=== PATIENT | male | born 1965 | race Caucasian/White ===

== ENCOUNTER 2019-02-04 22:04 | Emergency (ER) | payer BC, OTHER ==
[~2019-02-04 22:04] MED LIST: BENA40TA53 PO; IBUP400T13 PO; LORA10CA3 PO; PRAV40TA78 PO
[2019-02-04] MEDS ORDERED: ASPIRIN 81 MG CHEW CHEW ONE (22:15)
[2019-02-04] MEDS ORDERED: NS(*) 0.9% 1000 ML BAG 1,000 ML IV ONE (22:15)
--- NOTE | 2019-02-04 22:18 | ER Report ---
History and Physical Time Seen By MD: 22:18 Hx. of Stated Complaint: CHEST PAIN STARTING 15 MINUTES AGO, FEELS LIKE TORN SEXTON HPI/ROS CHIEF COMPLAINT: Chest pain HISTORY OF PRESENT ILLNESS: 53-year-old male with a history of hyperlipidemia and hypertension presents complaining of left-sided chest pain, achy in nature. He's been unable to sleep, which per Josefina presented to the ER. He recalls no specific injury. He thinks it feels like a pectoralis muscle tear. He points to the more lateral aspect of his chest wall. He states earlier in the day. He was helping someone move, but he does not think he injured himself. Patient notes no diaphoresis, shortness of breath or nausea. She notes no exertional component. He notes no change with respiration or palpation. REVIEW OF SYSTEMS: Respiratory: No cough, no dyspnea. Cardiovascular: As above Gastrointestinal: No vomiting, no abdominal pain. Musculoskeletal: No back pain. Allergies: Coded Allergies: No Known Drug Allergies (Unverified , 05/17/14) Home Meds Reported Medications Loratadine (CLARITIN) 10 Mg Capsule, 10 MG PO, CAPSULE 07/15/17 Pravastatin Sodium (PRAVASTATIN SODIUM) 40 Mg Tablet, 40 MG PO QDAY 05/17/14 Benazepril Hcl (BENAZEPRIL HCL) 40 Mg Tablet, 40 MG PO QDAY, TAB TAKE 1 TABLET BY MOUTH EVERY DAY 05/17/14 Ibuprofen (IBUPROFEN) 400 Mg Tablet, 1 TAB PO Q6H PRN for PAIN 05/17/14 Past Medical/Surgical History Hypertension, hyperlipidemia Reviewed Nurses Notes: Yes Old Medical Records Reviewed: Yes Smoking Status: Never Smoker Constitutional Vital Sign - Last 24 Hours 02/04/19 02/05/19 22:12 00:00 Temp 99.0 Pulse 73 72 Resp 16 16 B/P (MAP) 167/112 154/98 (116) Pulse Ox 94 95 O2 Delivery Room Air Room Air Physical Exam Vital signs stable, afebrile, pulse ox normal General Appearance: The patient is alert, has no immediate need for airway protection and no current signs of toxicity. No acute distress HEENT: Pupils equal and round no injection. TMs normal, oropharynx without redness or exudate, mucous. Membranes are moist Respiratory: Chest is non tender, lungs are clear to auscultation. No chest wall tenderness Cardiac: regular rate and rhythm, no murmur Gastrointestinal: Abdomen is soft and non tender, no masses, bowel sounds normal. Musculoskeletal: Neck: Neck is supple and non tender. Extremities have full range of motion and are non tender., No edema, no calf tenderness Skin: No rashes or lesions. DIFFERENTIAL DIAGNOSIS: After history and physical exam differential diagnosis was considered for chest pain including but not limited to myocardial ischemia, pericarditis pulmonary embolus, chest wall pain, pleural inflammation and pulmonary infectious causes. Medical Decision Making Data Points Result Diagram: 02/04/193 02/04/193 Laboratory Hematology Test 02/04/19 22:23 Red Blood Count 4.37 M/uL (4.00-5.60) Mean Corpuscular Volume 95.6 fL (80.0-96.0) Mean Corpuscular Hemoglobin 32.2 pg (26.0-33.0) Mean Corpuscular Hemoglobin Concent 33.7 g/dL (32.0-36.0) Red Cell Distribution Width 14.4 % (11.5-14.5) Mean Platelet Volume 7.4 fL (7.2-11.1) Neutrophils (%) (Auto) 49.7 % (39.4-72.5) Lymphocytes (%) (Auto) 35.2 % (17.6-49.6) Monocytes (%) (Auto) 11.9 % (4.1-12.4) Eosinophils (%) (Auto) 2.2 % (0.4-6.7) Basophils (%) (Auto) 1.0 % (0.3-1.4) Nucleated RBC Relative Count (auto) 0.1 /100WBC Neutrophils # (Auto) 3.0 K/uL (2.0-7.4) Lymphocytes # (Auto) 2.1 K/uL (1.3-3.6) Monocytes # (Auto) 0.7 K/uL (0.3-1.0) Eosinophils # (Auto) 0.1 K/uL (0.0-0.5) Basophils # (Auto) 0.1 K/uL (0.0-0.1) Nucleated RBC Absolute Count (auto) 0.01 K/uL D-Dimer Quantitative (PE/DVT) 0.62 ug/ml (0-0.50) Sodium Level 138 mmol/L (137-145) Potassium Level 3.8 mmol/L (3.5-5.0) Chloride Level 102 mmol/L (98-107) Carbon Dioxide Level 26 mmol/L (22-30) Blood Urea Nitrogen 18 mg/dl (9-21) Creatinine 1.00 mg/dl (0.66-1.25) Glomerular Filtration Rate Calc > 60.0 Random Glucose 91 mg/dl (75-110) Calcium Level 9.4 mg/dl (8.4-10.2) Total Bilirubin 0.2 mg/dl (0.2-1.3) Aspartate Amino Transf (AST/SGOT) 44 U/L (0-35) Alanine Aminotransferase (ALT/SGPT) 39 U/L (0-56) Alkaline Phosphatase 50 U/L (0-126) Troponin I < 0.012 ng/ml B-Type Natriuretic Peptide 26 pg/ml (0-100) Total Protein 8.0 g/dl (6.3-8.2) Albumin 4.6 g/dl (3.5-5.0) Chemistry Test 02/04/19 22:23 White Blood Count 6.0 k/uL (4.5-11.0) Red Blood Count 4.37 M/uL (4.00-5.60) Hemoglobin 14.1 g/dL (14.0-18.0) Hematocrit 41.8 % (42.0-52.0) Mean Corpuscular Volume 95.6 fL (80.0-96.0) Mean Corpuscular Hemoglobin 32.2 pg (26.0-33.0) Mean Corpuscular Hemoglobin Concent 33.7 g/dL (32.0-36.0) Red Cell Distribution Width 14.4 % (11.5-14.5) Platelet Count 273 K/uL (150-450) Mean Platelet Volume 7.4 fL (7.2-11.1) Neutrophils (%) (Auto) 49.7 % (39.4-72.5) Lymphocytes (%) (Auto) 35.2 % (17.6-49.6) Monocytes (%) (Auto) 11.9 % (4.1-12.4) Eosinophils (%) (Auto) 2.2 % (0.4-6.7) Basophils (%) (Auto) 1.0 % (0.3-1.4) Nucleated RBC Relative Count (auto) 0.1 /100WBC Neutrophils # (Auto) 3.0 K/uL (2.0-7.4) Lymphocytes # (Auto) 2.1 K/uL (1.3-3.6) Monocytes # (Auto) 0.7 K/uL (0.3-1.0) Eosinophils # (Auto) 0.1 K/uL (0.0-0.5) Basophils # (Auto) 0.1 K/uL (0.0-0.1) Nucleated RBC Absolute Count (auto) 0.01 K/uL D-Dimer Quantitative (PE/DVT) 0.62 ug/ml (0-0.50) Glomerular Filtration Rate Calc > 60.0 Calcium Level 9.4 mg/dl (8.4-10.2) Total Bilirubin 0.2 mg/dl (0.2-1.3) Aspartate Amino Transf (AST/SGOT) 44 U/L (0-35) Alanine Aminotransferase (ALT/SGPT) 39 U/L (0-56) Alkaline Phosphatase 50 U/L (0-126) Troponin I < 0.012 ng/ml B-Type Natriuretic Peptide 26 pg/ml (0-100) Total Protein 8.0 g/dl (6.3-8.2) Albumin 4.6 g/dl (3.5-5.0) Coagulation Test 02/04/19 22:23 D-Dimer Quantitative (PE/DVT) 0.62 ug/ml EKG/Imaging EKG Interpretation 12 lead EK Rhythm: normal sinus rhythm with sinus arrhythmia [place]: normal QRS: normal ST segments: normal, no evidence of ischemia or dysrhythmia Imaging X-ray: Single view portable chest x-ray was obtained. I viewed the images myself on the PACS system. My interpretation of the images is: No infiltrate, no effusion, normal mediastinum. The radiologist interpretation had no clinically significant variation from this interpretation. Results: CT scan of the CTA pulmonary angiogram was obtained. The results of the study are CT CTA CHEST W & W/O CON HISTORY: Chest pain ADDITIONAL HISTORY: None. TECHNIQUE: CTA chest with contrast. 3D coronal slab MIPs and 2D reconstructions in the coronal and sagittal planes were also created. CONTRAST: 75 cc of Isovue-370 One of the following dose optimization techniques was utilized in the performance of this exam: Automated exposure control; adjustment of the mA and/or kV according to the patient's size; or use of an iterative reconstruction technique. Specific details can be referenced in the facility's radiology CT exam operational policy. COMPARISON: None. FINDINGS: Vessels: Well-opacified pulmonary arteries in both lung salazar with no filling defects identified to suggest pulmonary emboli. Heart and pericardium: Aortic arch is normal with no aneurysmal change. No dissection Mediastinum and hilum: Negative. Lymph nodes: No pathologic lymph nodes identified Lungs/pleura: No infiltrates, consolidations, or mass lesions identified. Visualized upper abdomen: Negative. Lower neck: Negative. Bones/soft tissues: Negative. IMPRESSION: . Negative CT scan of the chest for pulmonary embolus. No acute cardiopulmonary disease. The study was read by the radiologist. I viewed the images myself on the PACS system. ED Course/Re-evaluation Clinical Indication for ER IV: IV Access ED Course Patient was admitted to an examination room. H&P was done. The differential diagnoses was considered. Patient was treated with an aspirin. His EKG is unremarkable. Patient's diagnostic studies returned with an elevated d-dimer of 0.62. Patient's chest x-ray and other laboratory studies are unremarkable. A CTA pulmonary angiogram is ordered. It returns unremarkable for pulmonary embolism. Patient's pain is resolved spontaneously without treatment. He was offered Toradol for pain but declined. Patient's advised ibuprofen and follow-up with primary care if his pain persists. He is cautioned return for any recurrence of pain, especially with associated symptoms. Decision to Disposition Date: Feb 05, 2019 Decision to Disposition Time: 00:15 Depart Departure Latest Vital Signs Vital Signs Date Time Temp Pulse Resp B/P (MAP) Pulse Ox O2 Delivery O2 Flow Rate FiO2 02/05/19 00:00 72 16 154/98 (116) 95 Room Air 02/04/19 22:12 99.0 Impression: Primary Impression: Chest wall pain Condition: Improved Disposition: HOME OR SELF-CARE Patient Instructions: Chest Wall Pain (ED) Additional Instructions: Take ibuprofen 200 mg 3 tablets 3 times a day with food as needed for pain relief Apply heating pad to the affected area Hollow up with your primary care doctor if unimproved in 3-5 days CONSUELO MURPHY DO Feb 04, 2019 22:18
[2019-02-04 22:41] LABS: PLATELET COUNT, AUTOMATED 273 K/uL (150-450)
--- NOTE | 2019-02-04 23:23 | RADIOLOGY IMAGING REPORT ---
FACILITY: [facility] - [place] PATIENT NAME: Jonathan Foster : 1965 MR: [id number] V: [id number] EXAM DATE: ORDERING PHYSICIAN: CONSUELO MURPHY TECHNOLOGIST: Location: [facility] Patient: Jonathan Foster : 1965 Visit/Account:[id number] Date of Sevice: 02/04/2019 TWO VIEW CHEST 02/04/2019 10:24 PM. INDICATION: CHEST PAIN COMPARISON: None. FINDINGS: Lungs are well-expanded. Nipple shadow over the right lower lung. No focal consolidation. No pneumothorax or pleural effusion. Heart size is normal. IMPRESSION: No acute abnormality. Report Dictated By: Douglas Nash MD at 02/04/2019 11:18 PM Report E-Signed By: Douglas Nash MD at 02/04/2019 11:19 PM WSN:[id number]
[2019-02-05] VITALS: BP 154/98
--- NOTE | 2019-02-05 00:11 | EKG ---
FAC[place] [facility] [place]IENT NAME: RAFFI SMITH : [id number] MR: [id number] V: [id number] EXAM DATE: ORDERING PHYSICIAN: CONSUELO MURPHY TECHNOLOGIST: GUILLERMO Chacon Reason : CP Blood Pressure : / mmHG Vent. Rate : 065 BPM Atrial Rate : 065 BPM P-R Int : 176 ms QRS Dur : 098 ms QT Int : 442 ms P-R-T Axes : 061 -11 058 degrees QTc Int : 459 ms Sinus rhythm Left axis Probable left atrial enlargement No previous ECGs available Confirmed by ERNESTO NUNO ([id number]) on 02/05/2019 12:36:44 AM Referred By: Confirmed By:ERNESTO NUNO
--- NOTE | 2019-02-05 00:30 | RADIOLOGY IMAGING REPORT ---
FACILITY: [facility] [place] PATIENT NAME: Jonathan Foster : 1965 MR: [id number] V: [id number] EXAM DATE: ORDERING PHYSICIAN: CONSUELO MURPHY TECHNOLOGIST: Location: [facility] Patient: Jonathan Foster : 1965 Visit/Account:[id number] Date of Sevice: 02/04/2019 CT CTA CHEST W & W/O CON HISTORY: Chest pain ADDITIONAL HISTORY: None. TECHNIQUE: CTA chest with contrast. 3D coronal slab MIPs and 2D reconstructions in the coronal and sagittal planes were also created. CONTRAST: 75 cc of Isovue-370 One of the following dose optimization techniques was utilized in the performance of this exam: Autom ated exposure control; adjustment of the mA and/or kV according to the patient's size; or use of an i terative reconstruction technique. Specific details can be referenced in the facility's radiology C T exam operational policy. COMPARISON: None. FINDINGS: Vessels: Well-opacified pulmonary arteries in both lung salazar with no filling defects identified to suggest pulmonary emboli. Heart and pericardium: Aortic arch is normal with no aneurysmal change. No dissection Mediastinum and hilum: Negative. Lymph nodes: No pathologic lymph nodes identified Lungs/pleura: No infiltrates, consolidations, or mass lesions identified. Visualized upper abdomen: Negative. Lower neck: Negative. Bones/soft tissues: Negative. IMPRESSION: . Negative CT scan of the chest for pulmonary embolus. No acute cardiopulmonary disease. Report Dictated By: Konrad Anaya MD at 02/05/2019 12:19 AM Report E-Signed By: Konrad Anaya MD at 02/05/2019 12:25 AM WSN:[id number]
== END 2019-02-05 00:50 | disposition home or self-care (01) ==
LOC: ER 22:23
DX: R07.89 Other chest pain (principal)
CPT/HCPCS: 71046; 71275; 83880; 84484; 85025; 85379; 93005; 96360; 99284; J7030; 82040; 82247; 82310; 82374; 82435; 82565; 82947; 84075; 84132; 84155; 84295; 84450; 84460; 84520